=== PATIENT | male | born 1995 | race Caucasian/White ===

== ENCOUNTER 2022-09-15 09:51 | Emergency (ER) | payer SELFPAY ==
[2022-09-15 09:52] VITALS: BP 144/95; PULSE 79; RESP 20; TEMP 37.1; O2SAT 95; BMI 30.7
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
--- NOTE | 2022-09-15 10:15 | PC.NURSE ---
PT TO RADIOLOGY WITH [employer].
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
[2022-09-15 11:50] VITALS: BP 139/104; PULSE 78; RESP 18; TEMP 36.7; O2SAT 99
== END 2022-09-15 11:50 | disposition home or self-care (01) ==
PROVIDERS: Emergency Provider Student in an Organized Health Care Education/Training Program
DX: H20.9 Unspecified iridocyclitis (principal); Y04.0XXA Assault by unarmed brawl or fight, initial encounter
CPT/HCPCS: 70486; 99284